=== PATIENT | male | born 1950 | race Caucasian/White ===

== ENCOUNTER 2020-06-12 09:47 | Outpatient (CLI) | payer OTHER, SELFPAY ==
--- NOTE | ~2020-06-12 | XR_ITS ---
EXAMINATION: XR knee LT min 4V DATE: 06/12/2020 10:08 INDICATION: Left knee pain. TECHNIQUE: 4 views of left knee were obtained. COMPARISON: None. FINDINGS: Bone alignment is normal. No fracture. There is mild tricompartmental osteoarthritis charac terized by tiny marginal osteophytes. No knee joint effusion. IMPRESSION: 1. Mild left knee osteoarthritis. Reviewed, dictated and finalized at location B. NG MACHINE MECHANIC
== END 2020-06-12 09:48 | disposition home or self-care (01) ==
PROVIDERS: PCP Family Medicine Adolescent Medicine; Visit Provider Physician Assistant
DX: M25.562 Pain in left knee (principal); M17.12 Unilateral primary osteoarthritis, left knee
CPT/HCPCS: 73564

== ENCOUNTER 2020-07-14 19:09 | Emergency (ER) | payer OTHER, SELFPAY ==
--- NOTE | ~2020-07-14 | CT_ITS ---
EXAMINATION: CT abdomen pelvis w con DATE: 07/14/2020 22:17 INDICATION: Left lower quadrant abdominal pain TECHNIQUE: Computed tomography (CT) of the abdomen and pelvis was performed with 100 mL Omnipaque-350 intravenous contrast. Automated exposure control and iterative reconstruction technique were employe d. The dose-length product was 367.87 mGy-cm. COMPARISON: 11/30/2018 FINDINGS: Mild discoid atelectasis in the left lower lobe. Cardiomegaly. No pericardial or pleural effusion. Sm all sliding-type hiatal hernia. Focal hepatic steatosis at the ligamentum teres. Gallbladder, spleen, pancreas, bilateral adrenal glands and kidneys are normal. Prominent diverticulosis with descending and sigmoid colon predominance. Edematous wall thickening of the sigmoid colon with adjacent inflamma tory stranding centered along the mid sigmoid colon consistent with diverticulitis. Trace amount of l ikely reactive free fluid in the pelvis. No abscess or free intraperitoneal gas. Bladder is normal. P rostatomegaly measuring 5.2 x 3.5 cm. Change of bilateral inguinal hernia repairs. No pathologically enlarged abdominal or pelvic lymphadenopathy. Change of prior posterior fusion procedure from L4-S1. Severe lumbar spondylosis. IMPRESSION: 1. Radiographically uncomplicated sigmoid diverticulitis. Reviewed, dictated and finalized at location A. ING SAW OPERATOR
[2020-07-14 19:17] VITALS: BP 135/77; PULSE 78; RESP 18; TEMP 37.4; O2SAT 99
[2020-07-14 19:57] LABS: Basophils Percent Auto 0.2 % (0.2-1.2); Eosinophils Absolute Auto 0.1 K/mm3 (0-0.3); Eosinophils Percent Auto 0.6 % (0-4.4); Hematocrit 40.6 % (42.0-52.0); Hemoglobin 13.8 g/dL (14.0-18.0); Immature Granulocyte Absolute 0.05 K/mm3 (0.00-0.031); Immature Granulocyte Percent A 0.4 % (0-0.5); Lymphocytes Absolute Auto 1.63 K/mm3 (0.9-3.2); Lymphocytes Percent Auto 13.2 % (18.3-44.2); Mean Corpuscular Hemoglobin 31.8 pg (26-34); Mean Corpuscular Volume 93.5 fl (80-100); Mean Platelet Volume 9.5 fl (7.4-10.4); Monocytes Absolute Auto 1.2 K/mm3 (0.1-0.6); Monocytes Percent Auto 9.8 % (2.6-8.5); Neutrophils Absolute Auto 9.4 K/mm3 (1.3-6.7); Neutrophils Percent Auto 75.8 % (45.5-73.1); Platelet Count Result 162 k/mm3 (150-375); Red Blood Count 4.34 M/mm3 (4.6-6.20); Red Cell Distribution Width 13.2 % (11.5-14.5); White Blood Count 12.4 K/mm3 (4.5-10.0)
[2020-07-14 20:08] LABS: Alanine Aminotransferase 18 U/L (4-50); Alkaline Phosphatase 74 U/L (38-126); Anion Gap 5 mmol/L (8-16); Aspartate Amino Transferase 20 U/L (17-59); Bilirubin,Total 1.2 mg/dL (0.2-1.3); Blood Urea Nitrogen 13 mg/dL (9-20); Carbon Dioxide 25 mmol/L (22-30); Chloride 105 mmol/L (98-107); Estimated Glomerular Filt Rate > 60; Glucose 122 mg/dL (75-110); Lipase 28 U/L (23-300); Potassium 3.7 mmol/L (3.4-5.0); Sodium 135 mmol/L (137-145)
[2020-07-14 20:44] LABS: Add Urine Microscopic? YES; Appearance Urine Clear (Clear); Bilirubin Urine Negative (Negative); Blood Urine 1+ (Negative); Color Urine Yellow (Yellow); Glucose Urine UA Negative (Negative); Ketones Urine Negative (Negative); Leukocyte Esterase Ur Negative LEU/UL (Negative); Mucus Urine Rare /lpf; Nitrate Urine Negative (Negative); Protein Urine Negative (Negative); Specific Grav Ur 1.013 (1.001-1.035); Squamous Epithelial Cell Urine Rare /hpf (Few); Urobilinogen Urine Negative mg/dL (<2.0); WBC Urine 0-3 /hpf
--- NOTE | 2020-07-14 21:39 | ED.ABDPAIN ---
HPI - Abdominal Pain General Chief Complaint: Abdominal Pain Stated Complaint: Abd pain, fever Time Seen by Provider: 07/14/20 20:43 Source: patient Mode of arrival: ambulatory Limitations: no limitations History of Present Illness HPI narrative: A 69-year-old male presents to the emergency room with complaints of lower abdominal pain. He states that it is concentrated on the left lower side. Patient does note that he has a history of diverticulitis and states that this does feel consistent. He notes that he also even had a fever at home. His states she took his temperature and it was 101.2. He denies any changes in his bowel habits. He states that the pain is a constant ache and approximately a 7 out of 10. Related Data Home Medications Medication Instructions Recorded Confirmed hyoscyamine sulfate 0.125 mg/mL 1 ml PO Q4-6H PRN 06/12/19 oral drops lisinopril 20 mg tablet 20 mg PO DAILY 06/12/19 tamsulosin 0.4 mg capsule 0.4 mg PO DAILY 06/12/19 zolpidem 10 mg tablet 10 mg PO ONCE tablet 06/12/19 Allergies Allergy/AdvReac Type Severity Reaction Status Date / Time Penicillins Allergy Unknown Unknown Verified 06/12/19 09:19 Review of Systems Review of Systems: Narrative: CONSTITUTIONAL: Denies fever, chills, or sweats. EYES: Denies visual changes, redness, or discharge. ENT: Denies rhinorrhea, congestion, sore throat, or otalgia. CARDIOVASCULAR: Denies chest pain, palpitations, or edema. RESPIRATORY: Denies cough or dyspnea. GASTROINTESTINAL: Denies nausea, vomiting, or diarrhea. Endorses left lower quadrant pain. GENITOURINARY: Denies dysuria or hematuria. SKIN: Denies rash or itching. MUSCULOSKELETAL: Denies back pain, joint pain, or myalgia. NEUROLOGIC: Denies headache, numbness, dizziness, or weakness. PSYCHIATRIC: Denies anxiety or depression. [facility] Past Medical History Medical History Diverticulosis HTN (hypertension) Insomnia Family History Family History Sibling Diabetes mellitus Other Family history of cardiovascular disease Family history of malignant neoplasm Social History Social History Smoking status: Light tobacco smoker Alcohol intake: current Exam Narrative: Exam Narrative: GENERAL: Well-appearing, well-nourished, and in no acute distress. HEAD: Normocephalic, atraumatic. EYES: PERRLA and EOMI. ENT: Nares clear, no rhinorrhea or epistaxis. Mucous membranes moist. Oropharynx without tonsillar hypertrophy exudate or other lesions. Bilateral TMs pearly perkins nonbulging NECK: Supple. No adenopathy or masses. No carotid bruits or JVD CHEST: Clear to auscultation. No respiratory distress. No wheezes rales or rhonchi HEART: Regular rate and rhythm. No murmur heard. Normal peripheral pulses. ABDOMEN: Soft, LLQ TTP, nondistended, normal active bowel sounds. EXTREMITIES: Normal range of motion. No edema. SKIN: Warm, dry, no rash. NEURO: No focal deficits. Alert and oriented x3. PSYCH: Normal mood and affect. Course Reevaluation(s) Reevaluation #1: Patient resting comfortably at this time. Informed him of his work-up. Patient will be given antibiotics for his diverticulitis, patient is ready to go home. Time: 22:36 Vital Signs Vital signs: Vital Signs Temperature 37.4 C 07/14/20 19:17 Pulse Rate 78 07/14/20 19:17 Respiratory Rate 18 07/14/20 19:17 Blood Pressure 135/77 07/14/20 19:17 Pulse Oximetry 99 07/14/20 19:17 Temperature 37.4 C 07/14/20 19:17 Pulse Rate 78 07/14/20 19:17 Respiratory Rate 18 07/14/20 19:17 Blood Pressure 135/77 07/14/20 19:17 Pulse Oximetry 99 07/14/20 19:17 MDM - Abdominal Pain MDM Narrative Medical decision making narrative: In brief this is a 69-year-old male, [facility] of [facility] lower quad
[2020-07-14] MEDS: KETOROLAC 15 MG/ML VIAL (*BKC) IV PUSH (21:47)
[2020-07-14 22:50] VITALS: BP 127/82; PULSE 67; RESP 16; TEMP 36.7; O2SAT 95
[2020-07-14] MEDS: metroNIDAZOLE 250 MG TABLET 500 MG PO (22:50)
[2020-07-14] MEDS: CIPROFLOXACIN 500 MG TAB PO (22:50)
== END 2020-07-14 22:57 | disposition home or self-care (01) ==
PROVIDERS: Emergency Provider Emergency Medicine; PCP Family Medicine Adolescent Medicine
DX: K57.32 Diverticulitis of large intestine without perforation or abscess without bleeding (principal); I10 Essential (primary) hypertension; F17.200 Nicotine dependence, unspecified, uncomplicated
CPT/HCPCS: 36415; 74177; 80053; 81001; 83690; 85025; 96374; 99284; A9270; J1885; Q9967

== ENCOUNTER 2020-07-16 13:54 | Emergency (ER) | payer OTHER, SELFPAY ==
[2020-07-16 14:15] VITALS: BP 121/77; PULSE 86; RESP 18; TEMP 36.7; O2SAT 96
[2020-07-16 14:28] LABS: Basophils Percent Auto 0.3 % (0.2-1.2); Eosinophils Percent Auto 0.4 % (0-4.4); Hematocrit 41.7 % (42.0-52.0); Hemoglobin 13.9 g/dL (14.0-18.0); Immature Granulocyte Absolute 0.04 K/mm3 (0.00-0.031); Immature Granulocyte Percent A 0.4 % (0-0.5); Lymphocytes Absolute Auto 1.47 K/mm3 (0.9-3.2); Lymphocytes Percent Auto 13.5 % (18.3-44.2); Mean Corpuscular HGB Conc 33.3 g/dl (32-36); Mean Corpuscular Hemoglobin 31.8 pg (26-34); Mean Corpuscular Volume 95.4 fl (80-100); Mean Platelet Volume 9.2 fl (7.4-10.4); Monocytes Absolute Auto 1.1 K/mm3 (0.1-0.6); Monocytes Percent Auto 9.8 % (2.6-8.5); Neutrophils Absolute Auto 8.2 K/mm3 (1.3-6.7); Neutrophils Percent Auto 75.6 % (45.5-73.1); Platelet Count Result 180 k/mm3 (150-375); Red Blood Count 4.37 M/mm3 (4.6-6.20); Red Cell Distribution Width 13.2 % (11.5-14.5); White Blood Count 10.9 K/mm3 (4.5-10.0)
[2020-07-16 14:38] LABS: Add Urine Microscopic? YES; Appearance Urine Clear (Clear); Bilirubin Urine Negative (Negative); Blood Urine 2+ (Negative); Color Urine Yellow (Yellow); Glucose Urine UA Negative (Negative); Ketones Urine Trace mg/dL (Negative); Leukocyte Esterase Ur 1+ LEU/UL (Negative); Mucus Urine Rare /lpf; Nitrate Urine Negative (Negative); Protein Urine Negative (Negative); Specific Grav Ur 1.019 (1.001-1.035); Squamous Epithelial Cell Urine Rare /hpf (Few); WBC Urine 0-3 /hpf
[2020-07-16 14:40] LABS: Alanine Aminotransferase 16 U/L (4-50); Albumin Level 4.1 g/dL (3.5-5.1); Alkaline Phosphatase 71 U/L (38-126); Anion Gap 8 mmol/L (8-16); Aspartate Amino Transferase 19 U/L (17-59); Blood Urea Nitrogen 14 mg/dL (9-20); Carbon Dioxide 25 mmol/L (22-30); Chloride 104 mmol/L (98-107); Estimated CRCL calculation 57 ml/min; Estimated Glomerular Filt Rate > 60; Glucose 88 mg/dL (75-110); Lipase 29 U/L (23-300); Potassium 3.8 mmol/L (3.4-5.0); Sodium 137 mmol/L (137-145)
--- NOTE | 2020-07-16 15:24 | ED.ABDPAIN ---
HPI - Abdominal Pain General Chief Complaint: Abdominal Pain Stated Complaint: abd pain Time Seen by Provider: 07/16/20 15:19 Source: patient Mode of arrival: ambulatory Limitations: no limitations History of Present Illness HPI narrative: A 69-year-old male presents to the emergency department with complaints of abdominal pain. He states that he followed up with his primary care physician and was told to come to the ER for worsening pain. Patient does state that he is also had some nausea and vomiting and has had issues with keeping his medicines down. He denies any further fevers but notes that he has been taking Tylenol for the pain. Related Data Home Medications Medication Instructions Recorded Confirmed hyoscyamine sulfate 0.125 mg/mL 1 ml PO Q4-6H PRN MDD pain 06/12/19 oral drops lisinopril 20 mg tablet 20 mg PO DAILY 06/12/19 tamsulosin 0.4 mg capsule 0.4 mg PO DAILY 06/12/19 zolpidem 10 mg tablet 10 mg PO ONCE tablet 06/12/19 Allergies Allergy/AdvReac Type Severity Reaction Status Date / Time Penicillins Allergy Unknown Unknown Verified 07/16/20 15:17 Review of Systems Review of Systems: Narrative: CONSTITUTIONAL: Denies fever, chills, or sweats. EYES: Denies visual changes, redness, or discharge. ENT: Denies rhinorrhea, congestion, sore throat, or otalgia. CARDIOVASCULAR: Denies chest pain, palpitations, or edema. RESPIRATORY: Denies cough or dyspnea. GASTROINTESTINAL: Denies nausea, vomiting, or diarrhea. Endorses generalized abdominal pain concentrated most of all in the left lower quadrant GENITOURINARY: Denies dysuria or hematuria. SKIN: Denies rash or itching. MUSCULOSKELETAL: Denies back pain, joint pain, or myalgia. NEUROLOGIC: Denies headache, numbness, dizziness, or weakness. PSYCHIATRIC: Denies anxiety or depression. [facility] Past Medical History Medical History Diverticulosis HTN (hypertension) Insomnia Family History Family History Sibling Diabetes mellitus Other Family history of cardiovascular disease Family history of malignant neoplasm Social History Social History Smoking status: Light tobacco smoker Alcohol intake: current Gender identity (if verbalized by the patient): Male Exam Narrative: Exam Narrative: GENERAL: Well-appearing, well-nourished, and in no acute distress. HEAD: Normocephalic, atraumatic. EYES: PERRLA and EOMI. ENT: Nares clear, no rhinorrhea or epistaxis. Mucous membranes moist. Oropharynx without tonsillar hypertrophy exudate or other lesions. Bilateral TMs pearly perkins nonbulging NECK: Supple. No adenopathy or masses. No carotid bruits or JVD CHEST: Clear to auscultation. No respiratory distress. No wheezes rales or rhonchi HEART: Regular rate and rhythm. No murmur heard. Normal peripheral pulses. ABDOMEN: Soft, nondistended, normal active bowel sounds. Slight tenderness to palpation at the left lower quadrant, no peritoneal signs. EXTREMITIES: Normal range of motion. No edema. SKIN: Warm, dry, no rash. NEURO: No focal deficits. Alert and oriented x3. PSYCH: Normal mood and affect. Course Reevaluation(s) Reevaluation #1: Reevaluated and provided care update for the patient. He is resting comfortably at this time and states that his pain is markedly better after the Toradol. He states he is feeling well and would like to go home. Time: 16:10 Reevaluation #2: Spoke with patient's PCP, Dr. Owens. We discussed pertinent details of the patient's work-up and evaluation. Informed him that at this time the patient's abdomen was much better after 1 dose of Toradol, his labs are trending in the right direction and I feel he may be discharged home. Exacerbating some of the patient's symptoms I feel may be a reaction to his antibiotics. We will change the patient to Augmentin rather than the C
[2020-07-16] MEDS: KETOROLAC 15 MG/ML VIAL (*BKC) IV PUSH (16:15)
[2020-07-16] MEDS: LACTATED RINGERS 1,000 ML 999 ML IV CONT (16:15)
== END 2020-07-16 17:03 | disposition home or self-care (01) ==
PROVIDERS: Emergency Provider Emergency Medicine; PCP Family Medicine Adolescent Medicine
DX: K57.92 Diverticulitis of intestine, part unspecified, without perforation or abscess without bleeding (principal); I10 Essential (primary) hypertension; K57.90 Diverticulosis of intestine, part unspecified, without perforation or abscess without bleeding; G47.00 Insomnia, unspecified; F17.200 Nicotine dependence, unspecified, uncomplicated
CPT/HCPCS: 36415; 80053; 81001; 83690; 85025; 96374; 99284; J1885; J7120

== ENCOUNTER 2020-10-14 07:58 | Outpatient (CLI) | payer OTHER, MEDICARE, SELFPAY | END 2020-10-14 07:59 | disposition home or self-care (01) | LOC: ANHCOVIDVC 07:58 | PROVIDERS: PCP Family Medicine Adolescent Medicine | DX: Z23 Encounter for immunization (principal) | CPT/HCPCS: 0001A; 91300 ==

== ENCOUNTER 2020-11-04 08:06 | Outpatient (CLI) | payer OTHER, MEDICARE, SELFPAY | END 2020-11-04 08:07 | LOC: ANHCOVIDVC 08:06 | PROVIDERS: PCP Family Medicine Adolescent Medicine | DX: Z23 Encounter for immunization (principal) | CPT/HCPCS: 0002A; 91300 ==

== ENCOUNTER 2021-01-22 06:57 | Outpatient (CLI) | payer OTHER, SELFPAY ==
--- NOTE | ~2021-01-22 | MR_ITS ---
EXAMINATION: MR knee LT wo con DATE: 01/22/2021 07:38 INDICATION: Left knee pain TECHNIQUE: Magnetic resonance imaging (MRI) of the left knee was performed without intravenous contra st. Sequences included coronal PD-weighted FSE, coronal PD-weighted FS FSE, sagittal T2-weighted FSE , sagittal PD-weighted FS FSE and axial PD weighted fat saturated FSE. COMPARISON: Left knee radiographs dated 06/12/2020 FINDINGS: Medial compartment: Complex tear of the body and posterior horn of the medial meniscus which includes a dominant longitud inal horizontal tear plane extending to contact the inferior articular surface. There is a small elinor dral flap arising from the medial meniscal body which is displaced peripherally and inferiorly into t he inferior gutter underlying the medial collateral ligament. Large flat central subchondral osteophy te at the site of deep chondral ulceration along the lateral aspect of the posterior weightbearing me dial femoral condyle. Articular cartilage appears otherwise relatively preserved.. Lateral compartment: Lateral meniscus is normal. Wilson near full-thickness chondral fissuring without degenerative subcho ndral changes at the central aspect of the lateral tibial plateau. Patellofemoral compartment: Deep chondral ulceration and fissuring with underlying cortical irregularity and subarticular edema a nd cystic change at the cephalad aspect of the apical ridge and supralateral aspect of the medial pat ellar facet. Remaining cartilage in the patellofemoral compartment is normal. Ligaments and tendons: Anterior and posterior cruciate ligaments are normal. The medial collateral ligament and fibular seda ateral ligament complex are normal. The extensor mechanism is normal. The visualized medial and later al hamstring tendons as well as the iliotibial band are normal. Fluid: Physiologic amount of fluid in the joint space. No loose osteochondral bodies identified. Small Alonzo 's cyst measuring 4.5 x 1.1 x 1.1 cm. Osseous/other: Normal marrow signal aside from the previous noted degenerative subarticular changes at the patella. No fracture or pathologic marrow replacing process. IMPRESSION: 1. Complex medial meniscal tear. 2. 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 3. Small Alonzo's cyst. Reviewed, dictated and finalized at location A. IMPRESSION: 1. Complex medial meniscal tear. 2. Mild tricompartmental osteoarthritis with regions of high-grade chondromalac ia at the patella and posterior weightbearing medial femoral condyle and small region of moderate grade chondromalacia at the lateral tibial plateau. 3. Small Alonzo's cyst.
== END 2021-01-22 06:58 | disposition home or self-care (01) ==
LOC: ANHIMG 07:01
PROVIDERS: PCP Family Medicine Adolescent Medicine; Visit Provider Orthopaedic Surgery
DX: S83.232A Complex tear of medial meniscus, current injury, left knee, initial encounter (principal); M71.22 Synovial cyst of popliteal space [Baker], left knee; M17.12 Unilateral primary osteoarthritis, left knee
CPT/HCPCS: 73721

== ENCOUNTER 2021-01-29 10:04 | Outpatient (CLI) | payer OTHER, SELFPAY ==
--- NOTE | 2021-01-29 10:12 | ECG_ITS ---
Measurements Intervals [place] Rate: 52 P: 12 [place]: 145 QRS: -44 QRSD: 89 T: 3 QT: 399 QTc: 372 Interpretive Statements SINUS BRADYCARDIA LEFT AXIS DEVIATION BORDERLINE R WAVE PROGRESSION, ANTERIOR LEADS BORDERLINE T WAVE ABNORMALITY- INFERIOR LEADS BASELINE ARTIFACT- I, III, AVR, AVL, V4-V5 BORDERLINE ECG Electronically Signed On 01-29-2021 10:32:43 CDT by Jeb Martin D.O.
== END 2021-01-29 10:05 | disposition home or self-care (01) ==
LOC: ANHSURGERY 10:05
PROVIDERS: PCP Family Medicine Adolescent Medicine; Visit Provider Orthopaedic Surgery
DX: Z01.810 Encounter for preprocedural cardiovascular examination (principal); I10 Essential (primary) hypertension; R00.1 Bradycardia, unspecified
CPT/HCPCS: 93005

== ENCOUNTER 2021-02-01 02:23 | Day surgery (SDC) | payer OTHER, SELFPAY ==
[2021-01-28 12:26] VITALS: BMI 23.9
--- NOTE | 2021-02-01 09:24 | WPDANESEPPF ---
Anes - Initial Pre Proc Eval Procedure: Operation Date: 02/01/21 11:45 Proposed Procedures p Left Knee Arthroscopy, Partial Meniscectomy - Alvaro Sullivan MD Date/Time: 02/01/21 09:24 Surgeon: Alvaro Sullivan MD Pre Op Diagnosis: left knee medial meniscal tear Patient Data Age: 70 Gender: M Height: 1.75 m Weight: 73.63 kg Allergies Allergy/AdvReac Type Severity Reaction Status Date / Time Penicillins Allergy Unknown Rash Verified 01/28/21 12:24 Home Medications Medication Instructions Recorded Confirmed Type lisinopril 20 mg tablet 20 mg PO DAILY 06/12/19 01/28/21 History tamsulosin 0.4 mg capsule 0.4 mg PO DAILY 06/12/19 01/28/21 History zolpidem 10 mg tablet 10 mg PO ONCE tablet 06/12/19 01/28/21 History hydrocodone 7.5 mg-acetaminophen 1 tablet PO Q8H PRN 11/03/20 01/28/21 History 325 mg tablet Patient hx anesthesia problems: none Family hx anesthesia problems: none PMFSH Past Medical History Medical History (Updated 01/27/21 @ 08:51 by Alvaro Sullivan MD) Diverticulosis HTN (hypertension) Insomnia Osteoarthritis of left knee Tear of medial meniscus of left knee Family History Family History Sibling Diabetes mellitus Other Family history of cardiovascular disease Family history of malignant neoplasm Social History Social History Smoking status: Light tobacco smoker Tobacco type: cigars Second hand tobacco smoke exposure: No Additional smoking assessment comments: STATES SMOKED 1PK EVERY 2-3 DAYS FOR 15 YEARS QUIT [id number] Alcohol intake: current Drinks per week: 2 Substance use: never Substance use type: does not use Living arrangements: with family Gender identity (if verbalized by the patient): Male Spiritual care concerns: No Anes - Eval Final PreProcedure Day of Procedure 02/01/21 09:24 Patient weight: normal Heart: regular rate and rhythm Lungs: clear to auscultation and normal air movement Airway: Mallampati scale class II Neurological: alert and oriented Last oral intake: >/= 8 hours ASA classification: II Emergent: no Anesthetic plan: proceed Anesthesia type and monitoring: general LMA Informed Consent: The patient's anesthetic plan and its attendant risks and benefits were discussed with the patient/family/POA. Questions were solicited and answers provided to the satisfaction of the patient/family/POA.
--- NOTE | 2021-02-01 10:14 | WPDHPUPDATE1 ---
History and Physical Update Update Date/Time: 02/01/21 10:14 History and Physical has been reviewed, including an updated exam of the patient. There are NO changes in the patient's condition. Risks, benefits, and alternatives have been discussed and questions answered. Patient agrees to proceed with procedure.
[2021-02-01 10:31] VITALS: BP 128/76; PULSE 59; RESP 18; TEMP 36.2; O2SAT 98
[2021-02-01] MEDS: ceFAZolin 2 GM/D5W 50 ML 2 GM/50 ML BAG IVPB (11:09)
--- NOTE | 2021-02-01 11:59 | P.OP_ITS ---
Procedure Note - Detailed Date of Procedure 02/01/21 Pre-op Diagnosis left knee medial meniscal tear Post-op Diagnosis same Procedure Performed left knee arthroscopy with partial medial meniscectomy Surgeon Alvaro Sullivan MD Anesthesia general Indications see H&P Description of Procedure The patient was identified and proper site identified. He was taken to the operating room and transferred to the OR table placing her supine taking care to pad the torso and extremities. After general anesthetic induction and intubation, a nonsterile tourniquet was placed high on the left thigh but was not used. The left lower extremity was positioned, prepped and draped in usual sterile fashion. 10 cc of 1% lidocaine was injected into the subcutaneous tissue in the area of the portals at start of the procedure, and an additional 10 at the end. The portals were established and the arthroscopy was carried out. The articular cartilage anteriorly and laterally was in excellent shape with minimal fraying. Medially there was grade 2 changes noted at the weight- bearing portion of medial femoral condyle and medial tibial plateau. Lateral meniscus was intact. Anterior posterior cruciate ligaments were in continuity. Medially there was a parrot-beak type tear the medial meniscus from the midbody to the posterior horn. This was debrided back to a stable rim with basket forceps and a shaver. Arthrocare Wand was used for hemostasis. The knee was flushed with a copious amount of arthroscopic fluid and equipment was removed. Portals were closed with three O nylon suture and a sterile dressing was applied. He tolerated the procedure well, was awakened, extubated and taken to recovery area in stable condition. There were no known intraoperative complications. Estimated blood loss was negligible. He received perioperative antibiotics. Estimated Blood Loss 15 Tourniquet Time 0 Drains No Packing No Pathology none sent Complications No immediate complications Condition stable Disposition PACU
[2021-02-01 12:00] VITALS: BP 110/78; PULSE 79; RESP 14; TEMP 36.1; O2SAT 100
[2021-02-01] MEDS: LACTATED RINGERS 1,000 ML 30 ML IV CONT ×2 (12:00)
[2021-02-01 12:15] VITALS: BP 123/84; PULSE 64; RESP 17; O2SAT 100
[2021-02-01 12:30] VITALS: BP 123/79; PULSE 60; RESP 16; O2SAT 96
[2021-02-01 12:42] VITALS: BP 124/76; PULSE 68
[2021-02-01 13:10] VITALS: BP 128/70; PULSE 54
== END 2021-02-01 13:38 | disposition home or self-care (01) ==
PROVIDERS: PCP Family Medicine Adolescent Medicine; Visit Provider Orthopaedic Surgery
PROC: (CPT 29870; principal; 2021-02-01 11:45)
DX: M23.332 Other meniscus derangements, other medial meniscus, left knee (principal); M17.12 Unilateral primary osteoarthritis, left knee; M94.262 Chondromalacia, left knee; M71.22 Synovial cyst of popliteal space [Baker], left knee; I10 Essential (primary) hypertension; Z72.0 Tobacco use
CPT/HCPCS: 29881; 93005; J0690; J1100; J2370; J2405; J2704; J3010; J7120

== ENCOUNTER 2022-07-15 00:15 | Day surgery (SDC) | payer OTHER, SELFPAY ==
[2022-07-01 10:44] VITALS: BMI 24.4
--- NOTE | 2022-07-14 13:56 | WPDANESEPPF ---
Anes - Initial Pre Proc Eval Procedure: Operation Date: 07/15/22 09:00 Proposed Procedures p Screening Colonoscopy - Robby Crenshaw MD Date/Time: 07/14/22 13:56 Surgeon: Robby Crenshaw MD Pre Op Diagnosis: family hx colon ca Patient Data Age: 71 Gender: M Height: 1.75 m Weight: 75 kg Allergies Allergy/AdvReac Type Severity Reaction Status Date / Time Penicillins Allergy Unknown Rash Verified 07/15/22 08:05 ciprofloxacin AdvReac Intermediate Neuro Verified 07/15/22 08:05 deficit Home Medications Medication Instructions Recorded Confirmed Type lisinopril 20 mg tablet 20 mg PO DAILY #90 tabs 05/03/22 07/01/22 Rx tamsulosin 0.4 mg capsule (Flomax) 0.4 mg PO DAILY #90 caps 05/03/22 07/01/22 Rx sodium,potassium,mag sulfates 17.5 See Rx Instructions PO .COMPLEX 06/30/22 07/15/22 Rx gram-3.13 gram-1.6 gram oral soln #354 mL (Suprep Bowel Prep Kit) zolpidem 10 mg tablet 10 mg PO QHS #90 tabs 07/07/22 07/15/22 Rx Patient hx anesthesia problems: none Family hx anesthesia problems: none Results Review: All pre-operative results and documents have been reviewed as part of the pre-operative evaluation. [facility] Past Medical History Medical History (Updated 07/15/22 @ 08:22 by Robby Crenshaw MD) BPH (benign prostatic hyperplasia) Diverticulosis HTN (hypertension) Insomnia Osteoarthritis of left knee Surgical History Surgical History (Updated 11/15/21 @ 07:42 by Kar Rob MD) History of arthroscopy of left knee medial meniscectomy February 01, 2021 History of bilateral inguinal hernia repair (~10/2018) History of hydrocelectomy (~2008) History of lumbar surgery History of sinus surgery (~2005) History of umbilical hernia repair (~04/2019) Family History Family History (Updated 11/16/21 @ 07:45 by Agustin Elizondo MA) Sibling Carcinoma of colon Colon polyp Family history of malignant neoplasm Heart disease Mother Acute myocardial infarction Family history of cardiovascular disease Family history of malignant neoplasm Heart disease Father Carcinoma of colon Colon polyp Family history of cardiovascular disease Heart disease Malignant neoplasm of prostate Social History Social History (Updated 11/16/21 @ 07:46 by Agustin Elizondo MA) Smoking status: Current every day smoker Tobacco type: cigars Second hand tobacco smoke exposure: No Additional smoking assessment comments: STATES SMOKED 1PK EVERY 2-3 DAYS FOR 15 YEARS QUIT [id number] Alcohol intake: current Drinks per week: 2 Alcohol use details: rarely Substance use: never Substance use type: does not use Living arrangements: with family Gender identity (if verbalized by the patient): Male Sexual Orientation (if Verbalized by the Patient): Straight or Heterosexual Spiritual care concerns: No Agree to blood products: Yes Anes - Eval Final PreProcedure Day of Procedure 07/14/22 13:56 Patient weight: normal Heart: regular rate and rhythm Lungs: clear to auscultation and normal air movement Airway: Mallampati scale class II Neurological: alert and oriented Last oral intake: >/= 8 hours ASA classification: II Emergent: no Anesthetic plan: proceed Anesthesia type and monitoring: general GIVS and standard monitoring Results Review: All pre-operative results and documents have been reviewed as part of the pre-operative evaluation. Informed Consent: The patient's anesthetic plan and its attendant risks and benefits were discussed with the patient/family/POA. Questions were solicited and answers provided to the satisfaction of the patient/family/POA.
[2022-07-15 08:08] VITALS: BP 134/82; PULSE 60; RESP 20; TEMP 36.4; O2SAT 99; BMI 24.0
[2022-07-15] MEDS: LACTATED RINGERS 1,000 ML 150 ML IV CONT (08:14)
--- NOTE | 2022-07-15 08:21 | PM.HPGS ---
History of Present Illness History of Present Illness Consent: Risks, benefits, and alternatives have been discussed and questions answered. Patient agrees to proceed with procedure. Chief complaint: family hx colon ca Narrative: Enio Knowles is a 71 year old male Presents for screening colonoscopy. Patient's father and brother both have had colon cancer. Patient reports that his current weight appetite and bowel movements are normal. Patient denies abdominal pain. He has had no bleeding. He does have a history of diverticulitis in 2019. Previous colonoscopy 2014 was revealed only diverticulosis. Patient presents today for neoplasia screening. Review of Systems Review of Systems: Review of systems noncontributory. [facility] Past Medical History Medical History (Updated 07/15/22 @ 08:22 by Robby Crenshaw MD) BPH (benign prostatic hyperplasia) Diverticulosis HTN (hypertension) Insomnia Osteoarthritis of left knee Surgical History Surgical History (Updated 11/15/21 @ 07:42 by Kar Rob MD) History of arthroscopy of left knee medial meniscectomy February 01, 2021 History of bilateral inguinal hernia repair (~10/2018) History of hydrocelectomy (~2008) History of lumbar surgery History of sinus surgery (~2005) History of umbilical hernia repair (~04/2019) Family History Family History (Updated 11/16/21 @ 07:45 by Agustin Elizondo MA) Sibling Carcinoma of colon Colon polyp Family history of malignant neoplasm Heart disease Mother Acute myocardial infarction Family history of cardiovascular disease Family history of malignant neoplasm Heart disease Father Carcinoma of colon Colon polyp Family history of cardiovascular disease Heart disease Malignant neoplasm of prostate Social History Social History (Updated 11/16/21 @ 07:46 by Agustin Elizondo MA) Smoking status: Current every day smoker Tobacco type: cigars Second hand tobacco smoke exposure: No Additional smoking assessment comments: STATES SMOKED 1PK EVERY 2-3 DAYS FOR 15 YEARS QUIT 9210-9866 Alcohol intake: current Drinks per week: 2 Alcohol use details: rarely Substance use: never Substance use type: does not use Living arrangements: with family Gender identity (if verbalized by the patient): Male Sexual Orientation (if Verbalized by the Patient): Straight or Heterosexual Spiritual care concerns: No Agree to blood products: Yes Meds Home Medications and Allergies Home Medications Medication Instructions Recorded Confirmed Type lisinopril 20 mg tablet 20 mg PO DAILY #90 tabs 05/03/22 07/01/22 Rx tamsulosin 0.4 mg capsule (Flomax) 0.4 mg PO DAILY #90 caps 05/03/22 07/01/22 Rx sodium,potassium,mag sulfates 17.5 See Rx Instructions PO .COMPLEX 06/30/22 07/15/22 Rx gram-3.13 gram-1.6 gram oral soln #354 mL (Suprep Bowel Prep Kit) zolpidem 10 mg tablet 10 mg PO QHS #90 tabs 07/07/22 07/15/22 Rx Allergies Allergy/AdvReac Type Severity Reaction Status Date / Time Penicillins Allergy Unknown Rash Verified 07/15/22 08:05 ciprofloxacin AdvReac Intermediate Neuro Verified 07/15/22 08:05 deficit Vital Signs Vital Signs - 24 hr 07/15/22 08:08 Temperature 97.5 F L Pulse Rate 60 Respiratory Rate 20 Blood Pressure 134/82 Pulse Oximetry 99 Oxygen Delivery Room Air Exam Narrative: Physical exam reveals patient be alert. Vital signs stable. HEENT exam is unremarkable. Patient is anicteric. Lungs are clear to auscultation and percussion. Heart is without murmur or extra sounds. Abdomen bowel sounds are present soft nontender with no organomegaly. Digital external rectal exam is normal. Assessment and Plan Assessment and plan (1) Family history of colon cancer in father: Code(s): Z80.0 - Family history of malignant neoplasm of digestive organs Status: Acute Assessment and Plan: Patient has family history of colon cancer in both f
[2022-07-15 09:03] VITALS: BP 98/64; PULSE 66; RESP 20; O2SAT 96
[2022-07-15 09:13] VITALS: BP 94/68; PULSE 58; RESP 18; O2SAT 97
[2022-07-15 09:23] VITALS: BP 110/59; PULSE 60; RESP 18; O2SAT 98
== END 2022-07-15 09:30 | disposition home or self-care (01) ==
PROVIDERS: PCP Family Medicine Adolescent Medicine; Visit Provider Internal Medicine Gastroenterology
PROC: 0DJD8ZZ Inspection of Lower Intestinal Tract, Via Natural or Artificial Opening Endoscopic (ICD-10-PCS; CPT 45378; principal; 2022-07-15 09:00)
DX: Z12.11 Encounter for screening for malignant neoplasm of colon (principal); Z80.0 Family history of malignant neoplasm of digestive organs; K57.30 Diverticulosis of large intestine without perforation or abscess without bleeding; K64.8 Other hemorrhoids; I10 Essential (primary) hypertension; Z87.891 Personal history of nicotine dependence
CPT/HCPCS: G0105; J2704; J7120

== ENCOUNTER 2022-08-22 07:40 | Outpatient (CLI) | payer OTHER, SELFPAY ==
--- NOTE | 2022-08-22 08:00 | ECG_ITS ---
Measurements Intervals [place] Rate: 61 P: 10 FL: 150 QRS: -42 QRSD: 88 T: 31 QT: 391 QTc: 395 Interpretive Statements SINUS RHYTHM LEFT ANTERIOR HEMIBLOCK MINIMAL VOLTAGE CRITERIA FOR LVH, CONSIDER NORMAL VARIANT [MEETS CRITERIA IN ONE OF: R(aVL), S(V1), R(V5), R(V5/V6)+S(V1)] NONSPECIFIC T-WAVE ABNORMALITY COMPARED TO ECG 01/29/2021 10:19:38 NO SIGNIFICANT CHANGE Electronically Signed On 08-22-2022 12:45:42 ENVIRONMENTAL EDUCATOR by Carrillo Ybarra M.D.
== END 2022-08-22 07:41 | disposition home or self-care (01) ==
LOC: ANHSURGERY 07:43
PROVIDERS: PCP Family Medicine Adolescent Medicine; Visit Provider Urology
DX: Z01.810 Encounter for preprocedural cardiovascular examination (principal); I10 Essential (primary) hypertension; R94.31 Abnormal electrocardiogram [ECG] [EKG]
CPT/HCPCS: 93005

== ENCOUNTER 2022-08-25 00:50 | Day surgery (SDC) | payer OTHER, SELFPAY ==
--- NOTE | 2022-08-19 09:18 | PC.NURSE ---
Report to the Outpatient Waiting Room, entrance under the green pavilion located off [facility], at time __0630 on date ___08/25/22____. Planned Procedure Time: . Time changes happen often and if your time is changed the preop area will call you the afternoon before. - You and your visitor will be asked to self-screen and do not enter if you have any COVID symptoms. - Only one visitor is requested with a max of two and NO children visitors are allowed at this time. - The patient visitor may be requested to leave or wait in car when not with patient due to distancing restrictions. - A mask is optional within the hospital at this time. Patients may have clear liquids (water, carbonated beverages, clear teas, apple juice) until 3 hours prior to surgery with a maximum of 20 ounces. - No food from midnight until time of surgery - Infants may have breast milk until 4 hours before surgery, infant formula 6 hours prior to surgery. - Children will be allowed to drink immediately following surgery. If applicable, please bring a bottle or sippy cup to assist with drinking. Juice, water, soda, and popsicles are readily available. For infants on formula, please bring formula the day of surgery. Pacifiers are allowed. Take the following medications with a SIP of water the morning of surgery: __NONE DO NOT STOP ANY OF YOUR OTHER PRESCRIPTION MEDICATIONS PRIOR TO SURGERY ?EXCEPT THE FOLLOWING Medications to discontinue per physician ____NONE Date to take last dose Please no make-up, nail greek, hairspray, perfume, deodorant, or body powder the day of surgery. No jewelry (including any body piercings) or valuables the day of surgery, leave them at home. Please take a shower or bath the night before, or the morning of, surgery with an antibacterial soap. Wear comfortable, loose fitting clothing. Children are encouraged to wear pajamas. - Jewelry must be removed prior to entering the operating room. Rings and piercings that are not removed may be cut off. - The hospital will not accept responsibility for valuables. - Please leave all valuables, including medications, at home the day of surgery. If you are going home after surgery, a licensed tractor trailer moving van driver must drive you home. - NO public transportation without another adult if you receive anesthesia. - We recommend that an adult stay with you for 24 hours following discharge. - We also recommend that you do not drive, make important decision, drink alcoholic beverages, or take any drugs that were not prescribed by your health care provider for at least 24 hours after your discharge time. For Pediatric surgeries, we recommend two adults accompany the child home. Follow any additional instructions given to you from your surgeon. If you or anyone in your household have experienced Covid symptoms in the past week, please notify your surgeon or the nurse liaison at the phone number below for possible testing. Telephone instructions given to __PATIENT and asked if any additional questions and then verbalized understanding. Patient advised to call surgeon office or pre surgery nurse liaison [phone] if any additional questions.
[2022-08-19 09:24] VITALS: BMI 23.5
[2022-08-25 06:33] VITALS: BP 131/80; PULSE 56; RESP 20; TEMP 36.6; O2SAT 97
--- NOTE | 2022-08-25 06:33 | PM.HPGS ---
History of Present Illness History of Present Illness Consent: Risks, benefits, and alternatives have been discussed and questions answered. Patient agrees to proceed with procedure. Chief complaint: left hydrocele Narrative: Enio Knowles is a 71 year old male [facility] Past Medical History Medical History (Updated 07/15/22 @ 08:22 by Robby Crenshaw MD) BPH (benign prostatic hyperplasia) Diverticulosis HTN (hypertension) Insomnia Osteoarthritis of left knee Surgical History Surgical History (Updated 11/15/21 @ 07:42 by Kar Rob MD) History of arthroscopy of left knee medial meniscectomy February 01, 2021 History of bilateral inguinal hernia repair (~10/2018) History of hydrocelectomy (~2008) History of lumbar surgery History of sinus surgery (~2005) History of umbilical hernia repair (~04/2019) Family History Family History (Updated 11/16/21 @ 07:45 by Agustin Elizondo MA) Sibling Carcinoma of colon Colon polyp Family history of malignant neoplasm Heart disease Mother Acute myocardial infarction Family history of cardiovascular disease Family history of malignant neoplasm Heart disease Father Carcinoma of colon Colon polyp Family history of cardiovascular disease Heart disease Malignant neoplasm of prostate Social History Social History (Updated 11/16/21 @ 07:46 by Agustin Elizondo MA) Smoking packs per day: 1 Smoking cigarettes per day: 20.0 Years smoked: 20 Smoking pack-years: 20.00 Smoking status: Former smoker Tobacco type: cigarettes Second hand tobacco smoke exposure: No Smoking end date: 07/03/89 Additional smoking assessment comments: STATES SMOKED 1PK EVERY 2-3 DAYS FOR 15 YEARS QUIT [id number] Alcohol intake: current Drinks per week: 2 Alcohol use details: rarely Substance use: never Substance use type: does not use Living arrangements: with family Occupation/Education: retired Gender identity (if verbalized by the patient): Male Sexual Orientation (if Verbalized by the Patient): Straight or Heterosexual Spiritual care concerns: No Agree to blood products: Yes Meds Home Medications and Allergies Home Medications Medication Instructions Recorded Confirmed Type lisinopril 20 mg tablet 20 mg PO DAILY #90 tabs 05/03/22 08/19/22 Rx tamsulosin 0.4 mg capsule (Flomax) 0.4 mg PO DAILY #90 caps 05/03/22 08/19/22 Rx zolpidem 10 mg tablet 10 mg PO QHS #90 tabs 07/07/22 08/19/22 Rx hydrocodone 7.5 mg-acetaminophen 1 tablet PO Q8H PRN pain #90 tabs 07/28/22 08/19/22 Rx 325 mg tablet Allergies Allergy/AdvReac Type Severity Reaction Status Date / Time Penicillins Allergy Unknown Rash Verified 08/19/22 09:09 ciprofloxacin AdvReac Intermediate Neuro Verified 08/19/22 09:09 deficit
--- NOTE | 2022-08-25 06:53 | WPDANESEPPF ---
Anes - Initial Pre Proc Eval Procedure: Operation Date: 08/25/22 08:30 Proposed Procedures p Left Hydrocelectomy - Jean Pierre Ulrich MD Date/Time: 08/25/22 06:53 Surgeon: Jean Pierre Ulrich MD Pre Op Diagnosis: left hydrocele Patient Data Age: 71 Gender: M Height: 1.78 m Weight: 74.45 kg Allergies Allergy/AdvReac Type Severity Reaction Status Date / Time Penicillins Allergy Unknown Rash Verified 08/19/22 09:09 ciprofloxacin AdvReac Intermediate Neuro Verified 08/19/22 09:09 deficit Home Medications Medication Instructions Recorded Confirmed Type lisinopril 20 mg tablet 20 mg PO DAILY #90 tabs 05/03/22 08/19/22 Rx tamsulosin 0.4 mg capsule (Flomax) 0.4 mg PO DAILY #90 caps 05/03/22 08/19/22 Rx zolpidem 10 mg tablet 10 mg PO QHS #90 tabs 07/07/22 08/19/22 Rx hydrocodone 7.5 mg-acetaminophen 1 tablet PO Q8H PRN pain #90 tabs 07/28/22 08/19/22 Rx 325 mg tablet Patient hx anesthesia problems: none Family hx anesthesia problems: none Results Review: All pre-operative results and documents have been reviewed as part of the pre-operative evaluation. [facility] Past Medical History Medical History BPH (benign prostatic hyperplasia) Diverticulosis HTN (hypertension) Insomnia Osteoarthritis of left knee Surgical History Surgical History History of arthroscopy of left knee medial meniscectomy February 01, 2021 History of bilateral inguinal hernia repair (~10/2018) History of hydrocelectomy (~2008) History of lumbar surgery History of sinus surgery (~2005) History of umbilical hernia repair (~04/2019) Family History Family History Sibling Carcinoma of colon Colon polyp Family history of malignant neoplasm Heart disease Mother Acute myocardial infarction Family history of cardiovascular disease Family history of malignant neoplasm Heart disease Father Carcinoma of colon Colon polyp Family history of cardiovascular disease Heart disease Malignant neoplasm of prostate Social History Social History Smoking packs per day: 1 Smoking cigarettes per day: 20.0 Years smoked: 20 Smoking pack-years: 20.00 Smoking status: Former smoker Tobacco type: cigarettes Second hand tobacco smoke exposure: No Smoking end date: 07/03/89 Additional smoking assessment comments: STATES SMOKED 1PK EVERY 2-3 DAYS FOR 15 YEARS QUIT 2163-2641 Alcohol intake: current Drinks per week: 2 Alcohol use details: rarely Substance use: never Substance use type: does not use Living arrangements: with family Occupation/Education: retired Gender identity (if verbalized by the patient): Male Sexual Orientation (if Verbalized by the Patient): Straight or Heterosexual Spiritual care concerns: No Agree to blood products: Yes Anes - Eval Final PreProcedure Day of Procedure 08/25/22 06:53 Patient weight: normal Heart: regular rate and rhythm Lungs: clear to auscultation Airway: Mallampati scale class II and special considerations poor dentition Neurological: alert and oriented Last oral intake: >/= 8 hours ASA classification: III Emergent: no Anesthetic plan: proceed Anesthesia type and monitoring: general LMA and standard monitoring Results Review: All pre-operative results and documents have been reviewed as part of the pre-operative evaluation. Informed Consent: The patient's anesthetic plan and its attendant risks and benefits were discussed with the patient/family/POA. Questions were solicited and answers provided to the satisfaction of the patient/family/POA.
[2022-08-25] MEDS: LACTATED RINGERS 1,000 ML 30 ML IV CONT (07:15)
--- NOTE | 2022-08-25 08:09 | WPDHPUPDATE1 ---
History and Physical Update Update Date/Time: 08/25/22 08:09 History and Physical has been reviewed, including an updated exam of the patient. There are NO changes in the patient's condition. Risks, benefits, and alternatives have been discussed and questions answered. Patient agrees to proceed with procedure.
[2022-08-25] MEDS: LIDO 1%/EPINEPHRINE 1:100,000 20 ML VIAL 10 ML INFILTRATE (08:15)
[2022-08-25] MEDS: ceFAZolin 2 GM/D5W 50 ML 2 GM/50 ML BAG IVPB (08:15)
[2022-08-25 08:57] VITALS: BP 114/62; PULSE 58; RESP 18; TEMP 36.1; O2SAT 97
[2022-08-25 09:10] VITALS: BP 122/72; PULSE 59; RESP 20; O2SAT 96
[2022-08-25 09:25] VITALS: BP 131/74; PULSE 54; RESP 12; O2SAT 95
[2022-08-25 09:30] VITALS: BP 135/74; PULSE 52; RESP 16
[2022-08-25 10:00] VITALS: BP 134/71; PULSE 50; RESP 16
--- NOTE | 2022-08-26 09:02 | W.PM.PROC2 ---
Procedure Note - Detailed Date of Procedure 08/26/22 Pre-op Diagnosis Left hydrocele Post-op Diagnosis Same Procedure Performed Left hydrocelectomy Surgeon Jean Pierre Ulrich MD Anesthesia General Description of Procedure The patient was brought to the operative suite where he was prepped and draped in routine sterile fashion while in a supine position after the uneventful induction of a general LMA anesthetic. An incision was made in the median raphe of the scrotum and dissection was carried into the left tunica vaginalis. Clear, straw-colored fluid was drained. The testicle was examined and found to be both visibly and palpably normal. The tunica was everted in a bottle-neck fashion using a running 4-0 chromic. The testicle was restore returned to an orthotopic positioned. The dartos muscle was closed with a running 4-0 chromic and the skin was likewise closed with a running 4-0 chromic. Estimated blood loss throughout this procedure was 5cc . Patient tolerated the procedure well and was taken to the recovery room in good condition. Estimated Blood Loss -5.0 Drains No Packing No Pathology None sent
== END 2022-08-25 10:17 | disposition home or self-care (01) ==
PROVIDERS: PCP Family Medicine Adolescent Medicine; Visit Provider Urology
PROC: (CPT 55040; principal; 2022-08-25 08:30)
DX: N43.3 Hydrocele, unspecified (principal); I10 Essential (primary) hypertension; N40.0 Benign prostatic hyperplasia without lower urinary tract symptoms; G47.00 Insomnia, unspecified; Z87.891 Personal history of nicotine dependence
CPT/HCPCS: 55060; 93005; J0690; J2250; J2405; J2704; J3010; J7120

== ENCOUNTER 2023-02-19 20:09 | Inpatient (IN) | payer OTHER, SELFPAY ==
[2023-02-19] VITALS (23 sets, daily range): BP systolic 118–136; BP diastolic 71–81; PULSE 72–82; RESP 17–30; TEMP 37.2; O2SAT 91–96
--- NOTE | ~2023-02-19 | CT_ITS ---
EXAMINATION: CT abdomen pelvis w con DATE: 02/19/2023 21:36 INDICATION: Abdominal pain. TECHNIQUE: Computed tomography (CT) of the abdomen and pelvis was performed with 100 mL Omnipaque 350 intravenous contrast. Automated exposure control and iterative reconstruction technique were employe d. The dose-length product was 393.23 mGy-cm. COMPARISON: CT abdomen and pelvis 07/14/2020 FINDINGS: The visualized portions of the lung bases demonstrate mild atelectasis. No pleural effusion . The heart size is normal. No pericardial effusion. The liver, gallbladder, spleen, pancreas, adrena l glands, and kidneys are normal. The prostate is mildly enlarged. There is wall thickening of the si gmoid colon. There are scattered diverticula in the colon. There is fat stranding around the sigmoid colon, consistent with diverticulitis. The appendix is normal. There are no dilated loops of bowel. A ortic atherosclerosis is noted. There is a small sliding hiatal hernia. There are no pathologically e nlarged lymph nodes. There is no free intraperitoneal fluid. There is severe thoracic and lumbar spon dylosis. IMPRESSION: 1. Sigmoid diverticulitis. No perforation or abscess. Reviewed, dictated and finalized at location A.
--- NOTE | 2023-02-19 20:33 | ED.ABDPAIN ---
HPI - Abdominal Pain General Chief Complaint: Abdominal Pain Stated Complaint: abd pain Time Seen by Provider: 02/19/23 20:29 Source: patient and family (spouse) Mode of arrival: ambulatory Limitations: no limitations History of Present Illness HPI narrative: patient is a pleasant 72 yo male with past medical history of diverticulitis, HTN, BPH, insomnia, osteoarthritis, who presents for lower abdomen pain that started about 3 days ago and has continued to get worse. patient states he has had diverticulitis in the past and this pain feels similar. he states his bowels are moving normal. Has had chills and generalized feeling weak so he hasn't drank or eaten much. denies fever, nausea, vomiting, diarrhea, constipation, bloody stool, chest pain, shortness of breath, pain with urination, flank pain, or any other symptoms. Related Data Home Medications Medication Instructions Recorded Confirmed hydrocodone 10 mg-acetaminophen 1 tablet PO Q8H PRN Pain (Scale 02/20/23 02/20/23 325 mg tablet Score 4-6) Allergies Allergy/AdvReac Type Severity Reaction Status Date / Time ciprofloxacin AdvReac Intermediate Neuro Verified 02/19/23 20:39 deficit Review of Systems Review of Systems: CONSTITUTIONAL: Denies fever, or sweats. Has had the chills. EYES: Denies visual changes, redness, or discharge. ENT: Denies rhinorrhea, congestion, sore throat, or otalgia. CARDIOVASCULAR: Denies chest pain, palpitations, or edema. RESPIRATORY: Denies cough or dyspnea. GASTROINTESTINAL: lower abdominal pain. Denies nausea, vomiting, or diarrhea. GENITOURINARY: Denies dysuria or hematuria. SKIN: Denies rash or itching. MUSCULOSKELETAL: Denies back pain, joint pain, or myalgia. NEUROLOGIC: Denies headache, numbness, or weakness. PSYCHIATRIC: Denies anxiety or depression. All systems reviewed & are unremarkable except as noted in HPI and below PMFSH Past Medical History Medical History (Updated 02/19/23 @ 23:01 by Diamond Bee APRN) BPH (benign prostatic hyperplasia) Diverticulosis HTN (hypertension) Insomnia Osteoarthritis of left knee Surgical History Surgical History (Updated 08/26/22 @ 09:13 by Kar Rob MD) History of arthroscopy of left knee medial meniscectomy February 01, 2021 History of bilateral inguinal hernia repair (~10/2018) History of hydrocelectomy (~2008) 2008 & 08/2022 History of lumbar surgery History of sinus surgery (~2005) History of umbilical hernia repair (~04/2019) Family History Family History Sibling Carcinoma of colon Colon polyp Family history of malignant neoplasm Heart disease Mother Acute myocardial infarction Family history of cardiovascular disease Family history of malignant neoplasm Heart disease Father Carcinoma of colon Colon polyp Family history of cardiovascular disease Heart disease Malignant neoplasm of prostate Social History Social History (Updated 01/09/23 @ 09:09 by Tavon Frazier CMA) Smoking packs per day: 1 Smoking cigarettes per day: 20.0 Years smoked: 20 Smoking pack-years: 20.00 Smoking status: Former smoker Tobacco type: cigarettes Second hand tobacco smoke exposure: No Smoking end date: 07/03/89 Additional smoking assessment comments: STATES SMOKED 1PK EVERY 2-3 DAYS FOR 15 YEARS QUIT 9311-6380 Alcohol intake: never Drinks per week: 2 Alcohol use details: rarely Substance use: never Substance use type: does not use Lack of Transportation: No Lack of Food: Never True Current Housing: I Have Housing Concerned About Future Housing: No Difficulty Paying Gas/Electric Bills: No Difficulty Paying for Meds: No Currently Unemployed: No Education: High School Diploma/GED Difficulty w/ Childcare or Family Care: No Living arrangements: with family Occupation/Education: retired Gender identity (if verbalized by the patient): Male Sexua
[2023-02-19 20:40] LABS: Basophils Percent Auto 0.3 % (0.2-1.2); Eosinophils Absolute Auto 0.1 K/mm3 (0-0.3); Eosinophils Percent Auto 1.3 % (0-4.4); Hemoglobin 13.3 g/dL (14.0-18.0); Immature Granulocyte Absolute 0.04 K/mm3 (0.00-0.031); Immature Granulocyte Percent A 0.4 % (0-0.5); Lymphocytes Absolute Auto 1.75 K/mm3 (0.9-3.2); Lymphocytes Percent Auto 16.4 % (18.3-44.2); Mean Corpuscular HGB Conc 32.4 g/dl (32-36); Mean Corpuscular Hemoglobin 31.8 pg (26-34); Mean Corpuscular Volume 98.1 fl (80-100); Mean Platelet Volume 9.6 fl (7.4-10.4); Monocytes Absolute Auto 1.1 K/mm3 (0.1-0.6); Monocytes Percent Auto 10.1 % (2.6-8.5); Neutrophils Absolute Auto 7.7 K/mm3 (1.3-6.7); Neutrophils Percent Auto 71.5 % (45.5-73.1); Platelet Count Result 191 k/mm3 (150-375); Red Blood Count 4.18 M/mm3 (4.6-6.20); Red Cell Distribution Width 12.7 % (11.5-14.5); White Blood Count 10.7 K/mm3 (4.5-10.0)
[2023-02-19 21:03] LABS: Alanine Aminotransferase 25 U/L (6-50); Alkaline Phosphatase 77 U/L (38-126); Anion Gap 7 mmol/L (8-16); Aspartate Amino Transferase 29 U/L (17-59); Bilirubin,Total 0.8 mg/dL (0.2-1.3); Blood Urea Nitrogen 17 mg/dL (9-20); Calcium 8.8 mg/dL (8.4-10.2); Carbon Dioxide 25 mmol/L (22-30); Chloride 103 mmol/L (98-107); Estimated Glomerular Filt Rate > 60; Glucose 115 mg/dL (65-110); Lipase 37 U/L (23-300); Potassium 3.8 mmol/L (3.4-5.0); Sodium 135 mmol/L (137-145)
[2023-02-19] MEDS: MORPHINE SULFATE (*CRX) 4 MG/ML INJ 2 MG IV PUSH (21:20)
[2023-02-19] MEDS: SODIUM CHLORIDE 0.9% IV 1,000 ML 500 ML IV CONT (21:20)
[2023-02-19] MEDS: ONDANSETRON INJ 4 MG/2 ML VIAL IV PUSH (21:20)
[2023-02-19 21:37] LABS: Appearance Urine Clear (Clear); Bacteria Urine None Seen /hpf; Bilirubin Urine Negative (Negative); Blood Urine 2+ (Negative); Color Urine Yellow (Yellow); Glucose Urine UA Negative (Negative); Ketones Urine Negative (Negative); Leukocyte Esterase Ur Trace LEU/UL (Negative); Nitrate Urine Negative (Negative); Non Pathogenic Casts 0-2; Protein Urine Negative (Negative); Specific Grav Ur 1.019 (1.001-1.035); Squamous Epithelial Cell Urine None seen /hpf (Few); WBC Urine 0-5 /hpf; pH Urine 6.5 (5.0-9.0)
[2023-02-19 21:48] LABS: Add Urine Microscopic? YES
[2023-02-19] MEDS: MORPHINE SULFATE (*CRX) 2 MG/ML INJ IV PUSH (22:45)
[2023-02-19] MEDS: PIPERACILLN/TAZ 3.375GM/NS50ML 3.375 GM/50 ML BAG IVPB (23:51)
[2023-02-20] VITALS (12 sets, daily range): BP systolic 110–137; BP diastolic 58–77; PULSE 58–74; RESP 14–27; TEMP 35.5–36.9; O2SAT 91–96; BMI 23.8
--- NOTE | 2023-02-20 00:42 | ADMGEN ---
This patient, Enio Knowles, was admitted to Medical Room 254-01. Patient/family oriented to hospital policies and general routines including ID bracelet, bed and alarms, visiting hours, pain management, procedures, bathroom and other care routines, personal items, smoking policy, room service/diet, and visiting hours. Information on how to activate the Rapid Response Team has been discussed. Patient/Family are encouraged to report perceived risks to care and to ask questions if they do not understand what they are told or what they should do.
[2023-02-20] MEDS: SODIUM CHLORIDE 0.9% IV 1,000 ML 100 ML IV CONT ×3 (01:05→23:15)
[2023-02-20] MEDS: ONDANSETRON INJ 4 MG/2 ML VIAL IV PUSH (03:38)
[2023-02-20] MEDS: MORPHINE SULFATE (*CRX) 2 MG/ML INJ IV PUSH ×4 (03:38→20:50)
[2023-02-20] MEDS: PIPERACILLN/TAZ 3.375GM/NS50ML 3.375 GM/50 ML BAG IVPB ×4 (05:33→23:45)
[2023-02-20] MEDS: ACETAMINOPHEN 325 MG TABLET 650 MG PO (05:44)
--- NOTE | 2023-02-20 11:47 | PM.IMHP ---
H&P: HPI History of Present Illness Date/Time: 02/20/23 11:47 Chief Complaint: Left lower quadrant abdominal pain Narrative: This is a 72-year-old male with past medical history of hypertension, chronic back pain, insomnia, BPH and 2 prior episodes diverticulitis the presented to the ED on 02/19/2023 due to acute abdominal pain that started approximately 5 days ago. Pain in the left lower quadrant radiating to the right lower quadrant and into the back. Patient stated that it was similar to the last time he had diverticulitis. Patient's last colonoscopy was 1 year ago. He describes the pain is a sharp stabbing pain associated with fever, chills, dysuria and abdominal bloating. He denies any nausea, vomiting and diarrhea. States that he has had decreased oral intake over the past 5 days. Bowel movements are normal in denies any hematochezia or melena. On presentation patient was afebrile and vital signs were stable. He was found to have a slightly elevated white blood cell count of 10.9. UA revealing 2+ blood, 2 urobilinogen, trace leukocyte esterase and 11-20 rbc's. Not concerning for acute infection but rather dehydration. CT abdomen pelvis revealing sigmoid diverticulitis with no perforation or abscess. Patient was started on IV Zosyn and admitted to the medical floor. Started on IV fluids, analgesics p.r.n. and NPO diet. [facility] Past Medical History Medical History BPH (benign prostatic hyperplasia) Diverticulosis HTN (hypertension) Insomnia Osteoarthritis of left knee Surgical History Surgical History History of arthroscopy of left knee medial meniscectomy February 01, 2021 History of bilateral inguinal hernia repair (~10/2018) History of hydrocelectomy (~2008) 2008 & 08/2022 History of lumbar surgery History of sinus surgery (~2005) History of umbilical hernia repair (~04/2019) Family History Family History (Updated 02/20/23 @ 11:56 by Zuleyma Hernandez PA-C) Sibling , Past weight 68 years old due to colon cancer. Carcinoma of colon Family history of malignant neoplasm Heart disease Colon polyp Mother Acute myocardial infarction Family history of cardiovascular disease Family history of malignant neoplasm Heart disease Father Carcinoma of colon Colon polyp Family history of cardiovascular disease Heart disease Malignant neoplasm of prostate Social History Social History Smoking packs per day: 1 Smoking cigarettes per day: 20.0 Years smoked: 20 Smoking pack-years: 20.00 Smoking status: Former smoker Tobacco type: cigarettes Second hand tobacco smoke exposure: No Smoking end date: 07/03/89 Additional smoking assessment comments: STATES SMOKED 1PK EVERY 2-3 DAYS FOR 15 YEARS QUIT [id number] Alcohol intake: never Drinks per week: 2 Alcohol use details: rarely Substance use: never Substance use type: does not use Lack of Transportation: No Lack of Food: Never True Current Housing: I Have Housing Concerned About Future Housing: No Difficulty Paying Gas/Electric Bills: No Difficulty Paying for Meds: No Currently Unemployed: No Education: High School Diploma/GED Difficulty w/ Childcare or Family Care: No Living arrangements: with family Occupation/Education: retired Gender identity (if verbalized by the patient): Male Sexual Orientation (if Verbalized by the Patient): Straight or Heterosexual Spiritual care concerns: No Agree to blood products: Yes Meds Home Medications and Allergies Home Medications Medication Instructions Recorded Confirmed Type tamsulosin 0.4 mg capsule (Flomax) 0.4 mg PO DAILY #90 caps 10/27/22 02/20/23 Rx zolpidem 10 mg tablet 10 mg PO QHS #90 tabs 01/11/23 02/20/23 Rx lisinopril 20 mg tablet 20 mg PO DAILY #90 tabs 01/26/23
--- NOTE | 2023-02-20 15:34 | PC.NURSE ---
Reviewed assessment placed by Gordo Fitch Student nurse of [facility]. Agree with assessment. Medications passed by Gordo under supervision of this marketing underwriter and assigned RN. Reviewed chart with Gordo and discussed assessments and any interventions. RN will be given report at end of clinical.
[2023-02-20] MEDS: ZOLPIDEM TARTRATE (*CRX) 5 MG TABLET 10 MG PO (20:49)
[2023-02-21 05:19] VITALS: BP 124/70; PULSE 63; RESP 18; TEMP 36.5; O2SAT 94
[2023-02-21] MEDS: PIPERACILLN/TAZ 3.375GM/NS50ML 3.375 GM/50 ML BAG IVPB ×2 (05:19→12:54)
[2023-02-21 05:30] LABS: Basophils Percent Auto 0.5 % (0.2-1.2); Eosinophils Absolute Auto 0.2 K/mm3 (0-0.3); Eosinophils Percent Auto 2.2 % (0-4.4); Hematocrit 36.9 % (42.0-52.0); Hemoglobin 11.7 g/dL (14.0-18.0); Immature Granulocyte Absolute 0.04 K/mm3 (0.00-0.031); Immature Granulocyte Percent A 0.5 % (0-0.5); Lymphocytes Absolute Auto 1.38 K/mm3 (0.9-3.2); Lymphocytes Percent Auto 17.5 % (18.3-44.2); Mean Corpuscular HGB Conc 31.7 g/dl (32-36); Mean Corpuscular Hemoglobin 31.5 pg (26-34); Mean Corpuscular Volume 99.5 fl (80-100); Mean Platelet Volume 9.3 fl (7.4-10.4); Monocytes Absolute Auto 0.7 K/mm3 (0.1-0.6); Monocytes Percent Auto 8.5 % (2.6-8.5); Neutrophils Absolute Auto 5.6 K/mm3 (1.3-6.7); Neutrophils Percent Auto 70.8 % (45.5-73.1); Platelet Count Result 174 k/mm3 (150-375); Red Blood Count 3.71 M/mm3 (4.6-6.20); Red Cell Distribution Width 12.2 % (11.5-14.5); White Blood Count 7.9 K/mm3 (4.5-10.0)
[2023-02-21 05:40] LABS: Alanine Aminotransferase 17 U/L (6-50); Albumin Level 3.4 g/dL (3.5-5.1); Alkaline Phosphatase 63 U/L (38-126); Anion Gap 7 mmol/L (8-16); Aspartate Amino Transferase 20 U/L (17-59); Bilirubin,Total 0.9 mg/dL (0.2-1.3); Blood Urea Nitrogen 15 mg/dL (9-20); Calcium 8.2 mg/dL (8.4-10.2); Carbon Dioxide 18 mmol/L (22-30); Chloride 109 mmol/L (98-107); Estimated CRCL calculation 62 ml/min; Estimated Glomerular Filt Rate > 60; Potassium 3.6 mmol/L (3.4-5.0); Sodium 134 mmol/L (137-145)
[2023-02-21 05:42] LABS: Glucose 60 mg/dL (65-110)
[2023-02-21] MEDS: DEXTROSE 5%/0.9% SOD CHL 1,000 ML 100 ML IV CONT (05:59)
[2023-02-21 08:18] LABS: Glucose Point of Care 100 mg/dl (65-105)
[2023-02-21 09:01] VITALS: O2SAT 94
[2023-02-21] MEDS: TAMSULOSIN HCL 0.4 MG CAPSULE PO (09:16)
[2023-02-21] MEDS: lisinopriL 20 MG TABLET PO (09:16)
[2023-02-21 10:00] VITALS: BP 128/72; PULSE 64; RESP 18; TEMP 36.4; O2SAT 95
[2023-02-21 12:10] LABS: Glucose Point of Care 177 mg/dl (65-105)
--- NOTE | 2023-02-21 13:56 | PM.DS ---
DS: Admitting Diagnosis Discharge Date 02/21/23 Admitting Diagnosis Diverticulitis DS: Discharge Diagnosis Discharge Diagnosis (1) Diverticulitis: Code(s): K57.92 - Diverticulitis of intestine, part unspecified, without perforation or abscess without bleeding Status: Acute (2) Essential (primary) hypertension: Code(s): I10 - Essential (primary) hypertension Status: Acute DS: Summary Hospital Course Hospital Course: This is a 72-year-old male with past medical history of hypertension, chronic back pain, insomnia, BPH and 2 prior episodes diverticulitis the presented to the ED on 02/19/2023 due to acute abdominal pain that started approximately 5 days ago.? Pain in the left lower quadrant radiating to the right lower quadrant and into the back.? Patient stated that it was similar to the last time he had diverticulitis.? Patient's last colonoscopy was 1 year ago.? He describes the pain is a sharp stabbing pain associated with fever, chills, dysuria and abdominal bloating.? He denies any nausea, vomiting and diarrhea.? States that he has had decreased oral intake over the past 5 days.? Bowel movements are normal in denies any hematochezia or melena.? On presentation patient was afebrile and vital signs were stable.? He was found to have a slightly elevated white blood cell count of 10.9. CT abdomen pelvis revealing sigmoid diverticulitis with no perforation or abscess.? Patient was started on IV Zosyn.?Started on IV fluids, analgesics p.r.n. after 24 hours of IV antibiotics and IV fluids patient was started feeling much better. Patient was started on clear liquids and advanced to a bland diet. Patient did well with this and has had no abdominal pain. Patient's white count has returned to normal and his vital signs are stable. Patient will be discharged on p.o. antibiotics for a total of 10 days. Time Spent with Patient Time attestation: Total time spent providing and/or coordinating discharge services: Exam Narrative: GENERAL: Comfortable, no acute distress HENMT: moist mucous membranes EYES: EOM intact b/l NECK: no lymphadenopathy RESPIRATORY: clear to auscultation CARDIO: RRR GI: soft, nontender, bowel sounds present SKIN: no rashes EXTREMITIES: no edema, redness or tenderness DS: Data Data Completed and Pending Labs on day of discharge: Labs from last 24 hours 02/21/23 02/21/23 02/21/23 12:03 08:15 05:10 WBC 7.9 RBC 3.71 L Hgb 11.7 L Hct 36.9 L MCV 99.5 MCH 31.5 MCHC 31.7 L RDW 12.2 Plt Count 174 MPV 9.3 Immature Gran % (Auto) 0.5 Neut % (Auto) 70.8 Lymph % (Auto) 17.5 L [place] % (Auto) 8.5 Eos % (Auto) 2.2 Baso % (Auto) 0.5 Lymph # (Auto) 1.38 [place] # (Auto) 0.7 H Eos # (Auto) 0.2 Baso # (Auto) 0.0 Abs Immat Gran (auto) 0.04 H Absolute Neuts (auto) 5.6 Absolute Nucleated RBC 0.0 Nucleated RBC % 0.0 Sodium 134 L Potassium 3.6 Chloride 109 H Carbon Dioxide 18 L Anion Gap 7 L BUN 15 Creatinine 1.00 Estim Creat Clear Calc 62 Estimated GFR > 60 Glucose 60 L POC Capillary Glucose 177 H 100 Calcium 8.2 L Total Bilirubin 0.9 AST 20 ALT 17 Alkaline Phosphatase 63 Total Protein 7.0 Albumin 3.4 L Discharge Plan Discharge Attending physician on discharge: Elijah Page Discharging Clinician: Zuleyma Hernandez Patient Disposition: Home, Self-Care Activity: as tolerated Diet: high fiber Discharge Instructions: Diet: Increase fiber intake. Good fiber sources include fruits, oats, beans, peas and vegetables. Medications: Levaquin 750 mg daily Flagyl 500 mg every 8 hours. Seek immediate care if: If you abdomen is hard or feels swollen You have black or bright red bowel movements You vomit blood Her sugar breath artery filling care going to faint If you have any of the on signs of dehydration: dizziness, weakness, extreme slee
== END 2023-02-21 14:57 | disposition home or self-care (01) | DRG 392 ==
LOC: ANHED 23:32 → ANH2MED 02-20 00:18
PROVIDERS: Emergency Medicine; Admitting Provider Internal Medicine; Emergency Provider Nurse Practitioner; PCP Family Medicine Adolescent Medicine; Visit Provider Internal Medicine Critical Care Medicine
DX: K57.32 Diverticulitis of large intestine without perforation or abscess without bleeding (principal); I10 Essential (primary) hypertension; N40.0 Benign prostatic hyperplasia without lower urinary tract symptoms; G47.00 Insomnia, unspecified; M17.12 Unilateral primary osteoarthritis, left knee; Z87.891 Personal history of nicotine dependence
CPT/HCPCS: 36415; 74177; 80053; 81001; 82948; 83690; 85025; 96361; 96365; 96366; 96375; 96376; 99285; A9270; G0378; J2270; J2405; J2543; J7030; J7042; Q9967

== ENCOUNTER 2023-02-27 14:30 | Outpatient (CLI) | payer OTHER, SELFPAY ==
--- NOTE | ~2023-02-27 | CT_ITS ---
EXAMINATION: CT abdomen pelvis w con DATE: 02/27/2023 15:07 INDICATION: Diverticulitis with acute worsening TECHNIQUE: Computed tomography (CT) of the abdomen and pelvis was performed with 100 mL Omnipaque-350 intravenous contrast. Automated exposure control and iterative reconstruction technique were employe d. The dose-length product was 466.86 mGy-cm. COMPARISON: 02/19/2023 FINDINGS: Mild discoid atelectasis at the lingula and basilar left lower lobe. Heart size is normal. No pericar dial or pleural effusion. Small sliding-type hiatal hernia. Liver, gallbladder, spleen, pancreas, shandra ateral adrenal glands and kidneys are normal. Bladder is normal. Mild prostatomegaly. Normal retrocec al appendix. Marked diffuse diverticulosis. Interval decrease in now mild wall thickening along the m id sigmoid colon and marked improvement in the prior surrounding inflammatory stranding consistent wi th resolving diverticulitis. No abscess or free intraperitoneal gas or fluid. No pathologically enlar ged abdominal or pelvic lymphadenopathy. Severe spondylosis in the lumbar and lower thoracic spine. A nterior fusion at L5-S1 and L4-S1 posterior spinal fusion. IMPRESSION: 1. Resolving sigmoid diverticulitis with no perforation or abscess. 2. Small sliding-type hiatal hernia. Reviewed, dictated and finalized at location A.
[2023-02-27 14:59] LABS: Estimated Glomerular Filt Rate 54
== END 2023-02-27 14:31 ==
PROVIDERS: PCP Family Medicine Adolescent Medicine; Visit Provider Family Medicine Adolescent Medicine
DX: K57.92 Diverticulitis of intestine, part unspecified, without perforation or abscess without bleeding (principal); K44.9 Diaphragmatic hernia without obstruction or gangrene
CPT/HCPCS: 74177; Q9967